=== PATIENT | male | born 1950 | race Caucasian/White ===

== ENCOUNTER → 2018-05-06 | Outpatient (CLI) | payer BC ==
[2018-05-06 07:51] LABS: Blood Urea Nitrogen 18 mg/dL (9-20)
--- NOTE | 2018-05-06 16:42 | MR ---
EXAMINATION TYPE: MR Prostate wo/w con DATE OF EXAM: 05/06/2018 COMPARISON: None IMAGE QUALITY: Good. INDICATION: Biopsy-proven prostate carcinoma in 2012. Active surveillance. PSA: 5.38 ng/ml Recent Biopsy and Date: March 2017 Pathology Report (If Applicable): Not applicable TECHNIQUE: Examination was performed using a 3T MRI without an endorectal coil. Multiparametric imaging was perf ormed with T2 mutliplanar sequences, axial diffusion weighted imaging and dynamic contrast enhanced i maging, utilizing 7.5 mL intravenous Gadavist gadolinium contrast. FINDINGS: No T1 hyperintensity is seen within the prostate gland to indicate hemorrhage from the prior biopsy i n March 2017 PROSTATE VOLUME: 5.5 cm SI x 5.1 cm AP x 5.9 cm LR Vol= 86 cc PSA DENSITY: 10.3 ng/ml/cc Site 1: There is a lenticular shaped circumscribed hypointense mass of the left peripheral zone measu ring 2.5 cm in its superior aspect and 1.6 cm on its inferior aspect on T2 small [id number] series 501 image 17 and 16 respectively. This is hyperintense on DWI and hypointense on ADC map. Assessment Category: 5 Size: 2.5 x 1.0 cm. Location(s): Peripheral zone mid gland lateral posterior and medial posterior NVB invasion: Capsule is ill-defined although there is no direct definitive neurovascular bundle inv asion. EPE: Again the capsule is ill-defined although no definitive extrahepatic metastatic extension is see n. There are numerous regions of ill-defined none circumscribed linear and wedge-shaped hypointensity th roughout the atrophic peripheral zone compatible with fibrosis or prior prostatitis. There is marked benign prostatic hyperplasia with numerous well-circumscribed heterogenous encapsulat ed nodules. IMPRESSION: Findings likely corresponding to the patient's known prior biopsy-proven prostate carcinoma within th e left mid gland lateral posterior and medial posterior locations measuring up to 2.5 cm and therefor e corresponding to a PI-RADS 5. No definitive neurovascular bundle invasion or extraprostatic extensi on is seen. Highest Assessment Category: 5 False negative rates for MRI range from 5-20% depending on risk profile. Assessment Categories: 1 ? Very low (clinically significant cancer is highly unlikely to be present) 2 ? Low (clinically significant cancer is unlikely to be present) 3 ? Intermediate (the presence of clinically significant cancer is equivocal) 4 ? High (clinically significant cancer is likely to be present) 5 ? Very high (clinically significant cancer is highly likely to be present)
== END | disposition home or self-care (01) ==
LOC: RADMRIMAIN 07:01
PROVIDERS: ATTEND Urology
DX: C61 Malignant neoplasm of prostate (principal)
CPT/HCPCS: 82565; 84520; 72197; A9585

== ENCOUNTER → 2018-09-16 | Outpatient (CLI) | payer BC | LOC: LABWHC1 08:47 | PROVIDERS: ATTEND Urology | DX: C61 Malignant neoplasm of prostate (principal) | CPT/HCPCS: 36415; 84153 ==

== ENCOUNTER → 2019-09-22 | Outpatient (CLI) | payer BC | END | disposition home or self-care (01) | LOC: LABWHC1 08:53 | PROVIDERS: ATTEND Urology | DX: C61 Malignant neoplasm of prostate (principal) | CPT/HCPCS: 36415; 84153 ==

== ENCOUNTER 2019-12-01 12:45 | Emergency (ER) | payer BC ==
[2019-12-01 12:53] VITALS: BP 142/85; PULSE 89; RESP 18; TEMP 98.4
--- NOTE | 2019-12-01 13:22 | XR ---
EXAMINATION TYPE: XR tibia fibula LT DATE OF EXAM: 12/01/2019 CLINICAL HISTORY: Open wound with pain and swelling. Injury. TECHNIQUE: Two views of the left leg are obtained. COMPARISON: None. FINDINGS: There is no acute fracture or dislocation seen in the left tibia or fibula. [id number]-[id number] jose medial tibiofemoral compartment narrowing and moderate spurring. Gcnz-wz-qesgiwqe patellofemoral and lateral tibiofemoral compartment narrowing. Visualized left ankle joint is felt within normal li mits. At Mid[place] level medial to the mid tibia there is oval 6.3 x 2.0 cm lesion felt to reflect sma ll to moderate-sized subcutaneous hematoma there is history of recent trauma. IMPRESSION: As above.
--- NOTE | 2019-12-01 13:38 | ED ---
Lower Extremity Injury HPI - General Chief Complaint: Extremity Injury, Lower Stated Complaint: left leg swelling Time Seen by Provider: 12/01/19 12:54 Source: patient Mode of arrival: ambulatory Limitations: no limitations - History of Present Illness Initial Comments: Patient is a 69-year-old male presenting to emergency Department with complaints of pain and swelling in his left lower leg. Patient states approximately one week ago he had his lower leg pinned in between 2 pieces of farm equipment. He states a piece of equipment tipped over pinning his left lower leg against another piece of equipment. Patient states he has been able to walk on it however the swelling has been increasing. Patient states a family member urged him to go to the ER to rule out a possible blood clot. Patient denies being on blood thinners. He denies any numbness and tingling into his leg or left ankle. He denies any recent fever, chills, chest pain, shortness of breath, cough. He has no other complaints at this time. - Related Data Home Medications Medication Instructions Recorded Confirmed Aspirin 81 mg PO DAILY 05/18/17 05/21/17 Pantoprazole Sodium [Protonix] 40 mg PO Q2D 05/18/17 05/21/17 Simvastatin [Zocor] 40 mg PO DAILY 05/18/17 05/21/17 amLODIPine BESYLATE/BENAZEPRIL 1 cap PO QAM 05/18/17 05/21/17 [Lotrel 5-10 mg Capsule] Previous Rx's Medication Instructions Recorded Cephalexin [Keflex] 500 mg PO Q6HR 5 Days #20 cap 12/01/19 Allergies Allergy/AdvReac Type Severity Reaction Status Date / Time No Known Allergies Allergy Verified 12/01/19 12:53 Review of Systems ROS Statement: Those systems with pertinent positive or pertinent negative responses have been documented in the HPI. ROS Other: All systems not noted in ROS Statement are negative. Past Medical History Past Medical History: Cancer, GERD/Reflux, Hyperlipidemia, Hypertension Additional Past Medical History / Comment(s): Prostate Ca Dx [id number] radiation or chemo. History of Any Multi-Drug Resistant Organisms: None Reported Past Surgical History: Orthopedic Surgery Past Anesthesia/Blood Transfusion Reactions: No Reported Reaction Past Psychological History: No Psychological Hx Reported Smoking Status: Never smoker Past Alcohol Use History: None Reported Past Drug Use History: None Reported - Past Family History Mother Family Medical History: Cancer Additional Family Medical History / Comment(s): colon Father Family Medical History: No Reported History General Exam - General Exam Comments Initial Comments: GENERAL: Well-appearing, well-nourished and in no acute distress. HEAD: Atraumatic, normocephalic. EYES: Pupils equal round and reactive to light, extraocular movements intact, sclera anicteric, conjunctiva are normal. ENT: TMs normal, nares patent, oropharynx clear without exudates. Moist mucous membranes. NECK: Normal range of motion, supple without lymphadenopathy or JVD. LUNGS: Breath sounds clear to auscultation bilaterally and equal. No wheezes rales or rhonchi. HEART: Regular rate and rhythm without murmurs, rubs or gallops. ABDOMEN: Soft, nontender, normoactive bowel sounds. No guarding, no rebound. No masses appreciated. : Deferred EXTREMITIES: Normal range of motion of the left lower extremity. Patient has significant bruising of the left lower leg with a hematoma on the medial aspect. There is also a healing abrasion to the area as well. There is some mild erythema of the area. He is neurovascular intact. No clubbing or cyanosis. NEUROLOGICAL: Normal speech, normal gait. PSYCH: Normal mood, normal affect. SKIN: Warm, Dry, normal turgor, no rashes. Limitations: no limitations Course Vital Signs 12/01/19 12:50 Temperature 98.4 F Pulse Rate 89 Respiratory 18 Rate Blood Pressure 142/85 O2 Sat by Pulse 98 Oximetry Medical Decision Making - Medical Decision Making Patient is a 69-year-old male presenting with left lower leg pain and swelling after getting it pinned between 2 pieces of equipment. Patient is able to ambulate with minimal pain. X-rays of the left tib-fib reveal no acute fractures or dislocation but appears to be a moderate-sized hematoma on the medial aspect. Ultrasound reveals no signs of acute DVT in the left lower extremity. I discussed with patient this is most likely a healing hematoma. I recommended applying an Jerald wrap to his left lower leg during the day. He will be started on Keflex for a mild cellulitis of his abrasion. Patient is agreement with this plan of care. Return parameters were discussed with the patient he verbalizes understanding. He will follow up with PCP. Case discussed with Dr. Hansen. Disposition Clinical Impression: Hematoma of left lower leg, Cellulitis of left lower leg Disposition: HOME SELF-CARE Condition: Stable Instructions (If sedation given, give patient instructions): Hematoma (ED) Additional Instructions: Please return to the Emergency Department if symptoms worsen or any other concerns. Apply compression wrap to the left lower leg throughout the day to help with swelling. Take antibiotic as prescribed. Follow-up with PCP. Prescriptions: Cephalexin [Keflex] 500 mg PO Q6HR 5 Days #20 cap Is patient prescribed a controlled substance at d/c from ED?: No Referrals: Tyrone Rubio DO [Primary Care Provider] - 1-2 days
--- NOTE | 2019-12-01 14:31 | US ---
EXAMINATION TYPE: US venous doppler duplex LE LT DATE OF EXAM: 12/01/2019 2:18 PM COMPARISON: NONE CLINICAL HISTORY: injury, swelling, pain. Patient states hitting leg on tractor. On aspirin. No hx DVT. SIDE PERFORMED: Left TECHNIQUE: The lower extremity deep venous system is examined utilizing real time linear array sonog ravi with graded compression, doppler sonography and color-flow sonography. VESSELS IMAGED: External Iliac Vein (EIV) Common Femoral Vein Deep Femoral Vein Greater Saphenous Vein * Femoral Vein Popliteal Vein Small Saphenous Vein * Proximal Calf Veins (* superficial vessels) Left Leg: Negative for DVT IMPRESSION: No evidence for DVT at this time.
== END 2019-12-01 15:08 | disposition home or self-care (01) ==
LOC: EC 12:45
DX: S89.92XA Unspecified injury of left lower leg, initial encounter (principal); S80.12XA Contusion of left lower leg, initial encounter; L03.116 Cellulitis of left lower limb; K21.9 Gastro-esophageal reflux disease without esophagitis; E78.5 Hyperlipidemia, unspecified; I10 Essential (primary) hypertension; Z85.46 Personal history of malignant neoplasm of prostate; W31.89XA Contact with other specified machinery, initial encounter; Y93.89 Activity, other specified; Y92.009 Unspecified place in unspecified non-institutional (private) residence as the place of occurrence of the external cause
CPT/HCPCS: 99284

== ENCOUNTER 2020-06-18 08:06 | Day surgery (SDC) | payer BC ==
[2020-06-11 12:08] VITALS: BMI 29.4
[~2020-06-18 08:06] MED LIST: LACTATED RINGERS 1,000 ML IV SCH; LIDOCAINE 1% (10MG/ML) FOR IV START INTRADERMA PRN
[2020-06-18 08:26] VITALS: TEMP 97.8
[2020-06-18] MEDS ORDERED: LACTATED RINGERS 1,000 ML IV ONE (08:26)
[2020-06-18] MEDS ORDERED: PROPOFOL 10 MG/ML 20 ML VIAL IV ONE (09:06)
[2020-06-18] MEDS ORDERED: LIDOCAINE 1% INJ 10MG/ML (20 ML MDV) ONE (09:06)
--- NOTE | 2020-06-18 09:09 | P.GSHP ---
History of Present Illness H&P Date: 06/18/20 Chief Complaint: abdominal pain, family history of colon cancer, change in bowel habits a today for upper and lower endoscopy. Patient has a history of abdominal pain recently. Better over the last month or so. Family history of colon cancer in his mother. Last upper and lower endoscopy 3 months ago. Patient complains of some constipation. Mild diverticulosis and mild gastritis seen. Past Medical History Past Medical History: Cancer, GERD/Reflux, Hyperlipidemia, Hypertension Additional Past Medical History / Comment(s): Prostate Ca Dx [id number] radiation or chemo. abdominal pain History of Any Multi-Drug Resistant Organisms: None Reported Past Surgical History: Orthopedic Surgery Additional Past Surgical History / Comment(s): lt knee repair torn cartilage Past Anesthesia/Blood Transfusion Reactions: No Reported Reaction, Motion Sickness Smoking Status: Never smoker - Past Family History Mother Family Medical History: Cancer Additional Family Medical History / Comment(s): colon Father Family Medical History: No Reported History Medications and Allergies Home Medications Medication Instructions Recorded Confirmed Type Aspirin 81 mg PO DAILY 05/18/17 06/11/20 History Pantoprazole Sodium [Protonix] 40 mg PO Q2D 05/18/17 06/11/20 History Simvastatin [Zocor] 40 mg PO DAILY 05/18/17 06/11/20 History amLODIPine BESYLATE/BENAZEPRIL 1 cap PO QAM 05/18/17 06/11/20 History [Lotrel 5-10 mg Capsule] Cholecalciferol [Vitamin D3 (25 5,000 unit PO DAILY 06/11/20 06/11/20 History Mcg = 1000 Iu)] Allergies Allergy/AdvReac Type Severity Reaction Status Date / Time No Known Allergies Allergy Verified 06/11/20 12:02 Surgical - Exam Vital Signs Temp Pulse Resp BP Pulse Ox 97.8 F 69 18 168/78 97 06/18/20 08:25 06/18/20 08:25 06/18/20 08:25 06/18/20 08:25 06/18/20 08:25 Physical exam: General: Well-developed, well-nourished HEENT: Normocephalic, sclerae nonicteric Abdomen: Nontender, nondistended Extremities: No edema Neuro: Alert and oriented Assessment and Plan (1) Change in bowel habits Narrative/Plan: Will proceed with upper and lower endoscopy Current Visit: No Status: Acute Code(s): R19.4 - CHANGE IN BOWEL HABIT SNOMED Code(s): 73905619
--- NOTE | 2020-06-18 09:32 | P.PCN ---
Date of Procedure: 06/18/20 Procedure(s) Performed: PREOPERATIVE DIAGNOSIS: Abdominal pain, change in bowel habits POSTOPERATIVE DIAGNOSIS: Duodenitis, gastritis, gastric polyp, hiatal hernia, diverticulosis, sigmoid colon stricture, small rectal polyp PROCEDURE: 1. EGD with biopsy 2. Colonoscopy with biopsy [place] [facility] [place] True Edwards M.D. SPECIMENS: Duodenum, antrum, gastric polyp, sigmoid colon stricture, rectal polyp ENDOSCOPIC PROCEDURE: The patient was on the endoscopy table in the left decubitus position. The Olympus gastroscope was inserted into the oropharynx and passed under direct visualization to the region of the third portion of the duodenum. From that point the scope was slowly withdrawn inspecting all surfaces carefully. There was mild duodenitis present. No ulcers were seen. A biopsy of the duodenal bulb took place. The pylorus was widely patent. The stomach was carefully inspected. There was mild gastritis present. A biopsy of the antrum took place to rule out H. pylori. A small polyp was seen in the body of the stomach and biopsied using the cold biopsy forceps. Retroflexion revealed a small hiatal hernia. The GE junction was present 1.5 cm above the diaphragmatic hiatus. There was no significant inflammatory changes in the distal esophagus or herniated stomach. The remainder of the esophagus was then carefully examined. There were no neoplastic inflammatory or polypoid lesions throughout the visualized esophagus. The patient was kept on the endoscopy table in the left decubitus position. The Olympus colonoscope was inserted into the anus and passed under direct visualization to the base of the cecum. The appendiceal orifice was visualized. From that point the scope was slowly withdrawn inspecting all surfaces carefully. There were no neoplastic inflammatory or polypoid lesions throughout the cecum, ascending, transverse, and descending colon. The patient had extensive diverticulosis throughout the sigmoid colon. At 30-35 cm there was an area of mild luminal narrowing with some mild inflammatory changes. This was described as a stricture and biopsies were taken. In the rectum a small polyp was seen and removed using the cold biopsy forceps. Digital rectal examination was normal. The patient was taken to the recovery room in stable condition per anesthesia guidelines. RECOMMENDATIONS: Await biopsy results. Increase dietary fiber. Follow-up EGD and colonoscopy 5 years.
[2020-06-18 09:37] VITALS: RESP 16
[2020-06-18 09:49] VITALS: PULSE 64
[2020-06-18 10:00] VITALS: BP 107/70
== END 2020-06-18 10:15 | disposition home or self-care (01) ==
LOC: ORWHC2ENDO 08:06
PROVIDERS: ATTEND Surgery
DX: K29.80 Duodenitis without bleeding (principal); K29.50 Unspecified chronic gastritis without bleeding; K31.7 Polyp of stomach and duodenum; K52.9 Noninfective gastroenteritis and colitis, unspecified; K44.9 Diaphragmatic hernia without obstruction or gangrene; K57.30 Diverticulosis of large intestine without perforation or abscess without bleeding; K56.699 Other intestinal obstruction unspecified as to partial versus complete obstruction; K62.1 Rectal polyp; K21.9 Gastro-esophageal reflux disease without esophagitis; E78.5 Hyperlipidemia, unspecified; I10 Essential (primary) hypertension; C61 Malignant neoplasm of prostate; Z98.890 Other specified postprocedural states; Z80.0 Family history of malignant neoplasm of digestive organs; Z79.82 Long term (current) use of aspirin; Z79.899 Other long term (current) drug therapy
CPT/HCPCS: 88305; 45380; 43239; J2001; J2704

== ENCOUNTER → 2020-10-07 | Outpatient (CLI) | payer BC | END | disposition home or self-care (01) | LOC: LABWHC1 14:25 | PROVIDERS: ATTEND Urology | DX: C61 Malignant neoplasm of prostate (principal) | CPT/HCPCS: 36415; 84153 ==

== ENCOUNTER → 2021-05-09 | Outpatient (CLI) | payer BC | END | disposition home or self-care (01) | LOC: LABWHC1 14:28 | PROVIDERS: ATTEND Urology | DX: C61 Malignant neoplasm of prostate (principal) | CPT/HCPCS: 36415; 84153 ==

== ENCOUNTER → 2021-10-30 | Outpatient (CLI) | payer BC | END | disposition home or self-care (01) | LOC: LABWHC1 09:57 | PROVIDERS: ATTEND Urology | DX: C61 Malignant neoplasm of prostate (principal) | CPT/HCPCS: 36415; 84153 ==

== ENCOUNTER → 2022-05-01 | Outpatient (CLI) | payer BC | END | disposition home or self-care (01) | LOC: LABWHC1 08:24 | PROVIDERS: ATTEND Urology | DX: C61 Malignant neoplasm of prostate (principal) | CPT/HCPCS: 36415; 84153 ==

== ENCOUNTER → 2022-10-30 | Outpatient (CLI) | payer BC | END | disposition home or self-care (01) | LOC: LABWHC1 07:28 | PROVIDERS: ATTEND Pediatrics | DX: C61 Malignant neoplasm of prostate (principal) | CPT/HCPCS: 36415; 84153 ==

== ENCOUNTER → 2023-02-01 | Outpatient (CLI) | payer BC ==
--- NOTE | 2023-02-02 08:28 | MR ---
EXAMINATION TYPE: MR Prostate wo/w con DATE OF EXAM: 02/01/2023 8:39 AM COMPARISON: 05/06/2018 CLINICAL INDICATION:Male, 72 years old with history of C61 MALIGNANT NEOPLASM OF PROSTATE; TECHNIQUE: Multi-planar, multi-sequence imaging of the pelvis is performed prior to and following the uncomplicated administration of bolus intravenous gadolinium. CONTRAST: 7.5 Gadavist Interpretive Criteria: PI-RADS v2.1 SERUM PSA: 6.3 on 10/30/2022. 6 6 on 05/01/2022. 6.9 on 03/20/2022. SURGICAL PATHOLOGY: No evidence for malignancy on 01/30/2022. Positive for malignancy 01/17/2021 involving the left mid gland 3+4 total [place] 7. FINDINGS: Prostatic dimensions: 6.2 x 5.5 x 4.4 cm. Ellipsoid Volume:78.56 (PSA density=0.08 ng/mL/mL) CENTRAL GLAND (Central and Transition Zones/CZ+TZ): Multiple bilateral, heterogenous appearing hypertrophic stromal nodules, without suspicious lesion. M edian lobe hypertrophy with protrusion into the base of the bladder. (PI-RADS 2) Prior area on MRI that represent area of biopsy-proven malignancy likely representing benign hypertro phic stromal nodule. This area is not significantly changed on today's exam. PERIPHERAL ZONE (PZ): Limited posterior evaluation on diffusion-weighted imaging. There is thinning of the peripheral zone secondary to hypertrophy of the central gland. Bilateral linear, indistinct wedgelike areas of low ADC, and low T2 signal, No evidence of masslike a bnormality, or localized perfusional hypervascularity, to further suggest a focus of clinically signi ficant prostate cancer. (PI-RADS 2) SEMINAL VESICLES (SV): Symmetric and unremarkable. PERIPROSTATIC TISSUES: Unremarkable. LYMPH NODES: No enlarged pelvic lymph node. REMAINING PELVIS: Bladder wall is within normal limits given distention. No abnormal free or organized intrapelvic fluid collection. No pathologic bowel dilation or mural thickening. Small right and trace left hydrocele. OSSEOUS STRUCTURES: No suspicious osseous abnormality. IMPRESSION: Mild motion limited exam with limited evaluation of the posterior peripheral zone due to gas in the r ectum. 1. No specific features for high-risk prostate cancer. Maximum PI-RADS score: 2. Finding on prior MRI is felt to represent benign prostatic hypertrophic nodule. Prior MRI score max PI-RADS score: 2. 2. Moderate BPH, estimated gland volume 78.56 mL. 3. No suspicious osseous lesion. No lymphadenopathy. No evidence of prostate adenocarcinoma involving the periprostatic tissues.
== END | disposition home or self-care (01) ==
LOC: RADMRIMAIN 07:43
PROVIDERS: ATTEND Urology
DX: C61 Malignant neoplasm of prostate (principal); N40.0 Benign prostatic hyperplasia without lower urinary tract symptoms
CPT/HCPCS: 72197; A9585

== ENCOUNTER → 2023-04-30 | Outpatient (CLI) | payer BC | END | disposition home or self-care (01) | LOC: LABWHC1 06:58 | PROVIDERS: ATTEND Urology | DX: C61 Malignant neoplasm of prostate (principal) | CPT/HCPCS: 36415; 84153 ==

== ENCOUNTER → 2023-10-29 | Outpatient (CLI) | payer BC | END | disposition home or self-care (01) | LOC: LABWHC1 06:52 | PROVIDERS: ATTEND Urology | DX: C61 Malignant neoplasm of prostate (principal) | CPT/HCPCS: 36415; 84153 ==

== ENCOUNTER → 2024-05-31 | Outpatient (CLI) | payer BC | END | disposition home or self-care (01) | LOC: LABWHC1 06:55 | PROVIDERS: ATTEND Urology | DX: C61 Malignant neoplasm of prostate (principal) | CPT/HCPCS: 36415; 84153 ==

== ENCOUNTER → 2024-11-24 | Outpatient (CLI) | payer BC | END | disposition home or self-care (01) | LOC: LABWHC1 07:09 | PROVIDERS: ATTEND Urology | DX: C61 Malignant neoplasm of prostate (principal) | CPT/HCPCS: 36415; 84153 ==